=== PATIENT | male | born 1975 | race Caucasian/White ===

== ENCOUNTER 2024-02-13 21:17 | Emergency (ER) | payer MEDICAID ==
[~2024-02-13] VITALS: Ht 152.4 cm; Wt 63.4 kg
[2024-02-13 21:48] VITALS: TEMP 98.1; O2SAT 100
[2024-02-14] MEDS: CYCLOBENZAPRINE 10MG TABLET PO STA (05:45)
[2024-02-14] MEDS ORDERED: CYCL10TA21 MT (07:01)
[2024-02-14 07:31] VITALS: BP 131/85; PULSE 70; RESP 16; O2SAT 99
== END 2024-02-14 07:30 | disposition home or self-care (01) ==
LOC: ER 21:17
DX: S33.5XXA Sprain of ligaments of lumbar spine, initial encounter (principal); I10 Essential (primary) hypertension; V43.52XA Car driver injured in collision with other type car in traffic accident, initial encounter; Y92.410 Unspecified street and highway as the place of occurrence of the external cause; Y93.89 Activity, other specified; Y99.8 Other external cause status
CPT/HCPCS: 72100; 99283